=== PATIENT | male | born 1980 | race Two or more races ===

== ENCOUNTER 2016-09-20 11:23 | Emergency (ER) | payer OTHER ==
[2016-09-20 11:57] VITALS: BP 121/75; PULSE 69; RESP 16; TEMP 98; O2SAT 100; BMI 32.4
--- NOTE | 2016-09-20 12:47 | ED PDOC ---
HPI: Head Injury Time Seen by Provider: 09/20/16 12:39 Chief Complaint (Nursing): Abnormal Skin Integrity Chief Complaint (Provider): Facial Laceration History Per: Patient History/Exam Limitations: no limitations Injury Occurred (Timing): Hours Ago: (earlier today) Onset/Duration Of Symptoms: Hrs Patient States: Other (Collided with door) Loss Of Consciousness: Second(s) Additional Complaint(s): Arias is a 36 y/o male who presents to the ED complaining of a facial laceration associated with headache, after sustaining an injury earlier today. Patient states he hit his head on a wooden door, and suffered a very short loss of consciousness. Denies changes in vision. Patients last Tetanus vaccination was more than 10 years ago. PMD: Unknown Past Medical History Reviewed: Historical Data, Nursing Documentation, Vital Signs Vital Signs: Last Vital Signs Temp 98 F 09/20/16 11:56 Pulse 69 09/20/16 11:56 Resp 16 09/20/16 11:56 BP 121/75 09/20/16 11:56 Pulse Ox 100 09/20/16 11:56 - Medical History PMH: No Chronic Diseases - Surgical History Surgical History: No Surg Hx - Family History Family History: States: Unknown Family Hx - Allergies Allergies/Adverse Reactions: Allergies Allergy/AdvReac Type Severity Reaction Status Date / Time No Known Allergies Allergy Verified 09/20/16 11:56 Review of Systems ROS Statement: Except As Marked, All Systems Reviewed And Found Negative Eyes: Negative for: Vision Change Skin: Positive for: Lesions (Laceration at the right eyebrow) Neurological: Positive for: Headache, Other (short LOC) Physical Exam - Reviewed Nursing Documentation Reviewed: Yes Vital Signs Reviewed: Yes - Physical Exam Appears: Positive for: Well, Non-toxic, No Acute Distress Head Exam: Positive for: ATRAUMATIC, NORMAL INSPECTION, NORMOCEPHALIC Skin: Positive for: Normal Color (Laceration at right eyebrow of 1 inch, superficial, with good wound borders and edges), Warm, Dry Eye Exam: Positive for: Normal appearance, EOMI, PERRL. Negative for: Conjunctival injection, Other (subconjunctival hemorrhage, hyphema) Neck: Positive for: Normal, Painless ROM, Supple Neurologic/Psych: Positive for: Alert, belly dancer II-XII (intact), Oriented, Cerebellar Tests (normal), Gait (normal). Negative for: Motor/Sensory Deficits , Other (drift) - ECG O2 Sat by Pulse Oximetry: 100 (RA) Pulse Ox Interpretation: Normal Medical Decision Making Medical Decision Making: Time: 12:45 --Laceration cleaned with normal saline and will apply dermabond to wound Clinical Impression: Laceration repair Upon provider evaluation patient is medically stable, and requires no further treatment in the ED at this time. Patient will be discharged home with instructions to keep wound clean. Counseling was provided and all questions were answered regarding diagnosis and need for follow up with PMD. There is agreement to discharge plan. Return if symptoms persist or worsen. Scribe Attestation: Documented by Lisa Khan, acting as a scribe for Darcie Randle PA-C Provider Scribe Attestation: All medical record entries made by the Scribe were at my direction and personally dictated by me. I have reviewed the chart and agree that the record accurately reflects my personal performance of the history, physical exam, medical decision making, and the department course for this patient. I have also personally directed, reviewed, and agree with the discharge instructions and disposition. Procedures - Laceration/Wound Repair Laceration at right eyebrow cleaned with normal saline and applied dermabond Wound Length (cm): 2.54 Wound's Depth, Shape: superficial Wound Explored: clean Wound Repaired With: Skin adhesive (Dermabond) Wound Complexity: Simple Disposition - Clinical Impression Clinical Impression: Laceration - Patient ED Disposition Is Patient to be Admitted: No Counseled Patient/Family Regarding: Need For Followup - Disposition Disposition: Routine/Home Disposition Time: 20:26 Condition: STABLE Instructions: Laceration (ED), Skin Adhesive Care (ED) Forms: [employer] (Belgian) Print Language: MACEDONIAN
[2016-09-20] MEDS ORDERED: TDAP Vaccine 0.5 mL Syr IM ONE (13:05)
== END 2016-09-20 13:10 | disposition home or self-care (01) ==
LOC: H.ER 11:23
DX: S01.81XA Laceration without foreign body of other part of head, initial encounter (principal); W22.8XXA Striking against or struck by other objects, initial encounter; Y92.89 Other specified places as the place of occurrence of the external cause